=== PATIENT | female | born 1950 | race Asian ===

== ENCOUNTER 2023-06-20 17:54 | Inpatient (IN) | payer MEDICARE, OTHER ==
[~2023-06-20] VITALS: Ht 154.9 cm; Wt 47.2 kg
[2023-06-20] MEDS ORDERED: VANCOMYCIN IV 1,000 MG in IV DEXTROSE 5% 250 ML IV ONE (18:15)
[2023-06-20] MEDS ORDERED: CLINDAMYCIN 600 MG PIGGYBACK**ER OMNI IV ONE (18:31)
[2023-06-20] MEDS ORDERED: VANCOMYCIN IV 200 ML ONE (18:31)
[2023-06-20] MEDS ORDERED: MEROPENEM 1GM/NS 100ML IVPB **ER PYXIS ONLY IV ONE (18:31)
[2023-06-20] MEDS ORDERED: methylPREDNISolone SOD SUCC 125 MG/2 ML VIAL ONE (18:31)
[2023-06-20] MEDS ORDERED: PROPOFOL 100 ML ONE (18:32)
[2023-06-20 18:51] LABS: ABG BASE EXCESS 5.8 mmol/L (-2.0-2.0); ABG PCO2 29.5 mmHg (35.0-48.0); ABG SITE RIGHT FEMORAL; ABG TOTAL HEMOGLOBIN 13.9 G/dL (12.0-16.0); AaDO2 99.8 mmHg; COHb 0.3 % (0.0-3.9); MetHb 0.2 % (0.0-1.5); O2Hb 99.3 % (94.0-97.0); VT, ABG 500 mL
[2023-06-20 18:51] LABS: CALCIUM 10.1 mg/dL (8.5-10.1); CARBON DIOXIDE 34 mmol/L (21-32); CHLORIDE 106 mmol/L (98-107); CREATININE 0.9 mg/dL (0.6-1.3); GLUCOSE 161 mg/dL (74-106); POTASSIUM 3.9 mmol/L (3.5-5.1); SODIUM SERUM 146 mmol/L (136-145); UREA NITROGEN, BLOOD 36 mg/dL (7-18)
[2023-06-20 18:53] LABS: BASOPHILS # (AUTO) 0.1 K/UL (0.0-0.2); BASOPHILS % (AUTO) 0.6 % (0.0-2.0); EOSINOPHILS # (AUTO) 0.2 K/uL (0.0-0.7); EOSINOPHILS % (AUTO) 1.9 % (0.0-7.0); HEMATOCRIT 40.5 % (31.2-41.9); HEMOGLOBIN 13.9 g/dL (10.9-14.3); LYMPHOCYTES # (AUTO) 2.8 K/uL (0.8-4.8); LYMPHOCYTES % (AUTO) 25.2 % (20.5-51.5); MEAN CORPUSCULAR HEMOGLOBIN 33.4 uug (24.7-32.8); MEAN CORPUSCULAR HGB CONC 34 g/dL (32.3-35.6); MEAN CORPUSCULAR VOLUME 97.3 fL (75.5-95.3); MONOCYTES # (AUTO) 0.6 K/uL (0.1-1.30); MONOCYTES % (AUTO) 5.2 % (0.0-11.0); NEUTROPHILS # (AUTO) 7.6 K/uL (1.8-8.9); NEUTROPHILS % (AUTO) 67.1 % (38.5-71.5); PLATELET COUNT (AUTO) 199 K/uL (179-408); RED BLOOD CELL COUNT(AUTO) 4.16 MIL/uL (3.63-4.92); RED CELL DISTRIBUTION WIDTH 12.8 % (12.3-17.7); WHITE BLOOD COUNT (AUTO) 11.3 K/uL (3.8-11.8)
[2023-06-20] MEDS: methylPREDNISolone SOD SUCC 125 MG/2 ML VIAL IV ONE (18:58)
[2023-06-20] MEDS: PROPOFOL 100 ML IV PRN (18:58)
[2023-06-20] MEDS: SUCCINYLCHOLINE CHLORIDE 200 MG/10 ML VIAL IV ONE (18:58)
[2023-06-20] MEDS: ETOMIDATE 20 MG/10 ML VIAL IV ONE (18:58)
[2023-06-20] MEDS: CLINDAMYCIN PHOSPHATE IV 600 MG in IV DEXTROSE 5% 100 ML IV ONE (18:58)
[2023-06-20 18:59] LABS: DIFFERENTIAL COMMENT 1
[2023-06-20] MEDS ORDERED: IPRA0.2S48 NEB (19:00)
[2023-06-20] MEDS ORDERED: ASCO500C6 GT (19:00)
[2023-06-20] MEDS ORDERED: ACET-73 GT (19:00)
[2023-06-20] MEDS ORDERED: ALBU2.5V13 NEB (19:00)
[2023-06-20] MEDS ORDERED: CYAN100T9 GT (19:00)
[2023-06-20] MEDS ORDERED: LACT1CAP26 GT (19:00)
[2023-06-20] MEDS ORDERED: MAGN400O6 GT (19:00)
[2023-06-20] MEDS ORDERED: CHOL500062 GT (19:00)
[2023-06-20] MEDS ORDERED: DOCU50CA13 GT (19:00)
[2023-06-20] MEDS ORDERED: ONDA4TAB5 GT (19:00)
[2023-06-20] MEDS ORDERED: METO25TA6 GT (19:00)
[2023-06-20] MEDS ORDERED: ATOR20TA GT (19:00)
[2023-06-20] MEDS ORDERED: ACET-3117 GT (19:00)
[2023-06-20] MEDS ORDERED: DEXT1DRO3 OP (19:00)
[2023-06-20] MEDS ORDERED: MELA3CAP2 GT (19:00)
[2023-06-20] MEDS ORDERED: ASPI81TA31 GT (19:00)
[2023-06-20] MEDS ORDERED: LIDO1ADH82 TP (19:00)
[2023-06-20] MEDS ORDERED: BACL10TA GT (19:00)
[2023-06-20] MEDS ORDERED: BISA10SU61 RC (19:00)
[2023-06-20] MEDS ORDERED: BUDE0.25 IH (19:01)
[2023-06-20] MEDS ORDERED: PREG50CA GT (19:01)
[2023-06-20] MEDS ORDERED: CALC-494 GT (19:01)
[2023-06-20] MEDS ORDERED: CALC-1276 GT (19:01)
[2023-06-20] MEDS ORDERED: VITA1CAP GT (19:01)
[2023-06-20] MEDS ORDERED: POLY250017 GT (19:01)
[2023-06-20 19:04] LABS: ALANINE AMINOTRANSFERASE 32 U/L (14-59); ALBUMIN 3.8 g/dL (3.4-5.0); ALKALINE PHOSPHATASE 106 U/L (50-136); ASPARTATE AMINOTRANSFERASE 24 U/L (15-37); BILIRUBIN,DIRECT 0.1 mg/dL (0.0-0.2); BILIRUBIN,TOTAL 0.5 mg/dL (0.2-1.0); NT-PRO BNP 349 pg/mL (0-125); TOTAL PROTEIN, SERUM 8.1 g/dL (6.4-8.2)
[2023-06-20 19:06] LABS: LACTIC ACID 3.3 mmol/L (0.4-2.0)
[2023-06-20] MEDS: MEROPENEM 1 G in IV NORMAL SALINE 100 ML IV ONE (19:30)
[2023-06-20] MEDS: IV NORMAL SALINE 1000 ML BAG IV ONE (19:45)
[2023-06-20 20:59] LABS: ABG BASE EXCESS 2.7 mmol/L (-2.0-2.0); ABG HCO3 24.9 mmol/L (22.0-26.0); ABG PCO2 31.3 mmHg (35.0-48.0); ABG PH 7.519 (7.340-7.440); ABG SITE RIGHT RADIAL; ABG TOTAL HEMOGLOBIN 13.2 G/dL (12.0-16.0); AaDO2 99.2 mmHg; COHb 0.4 % (0.0-3.9); MetHb 0.1 % (0.0-1.5); O2Hb 98.7 % (94.0-97.0); VT, ABG 450 mL
[2023-06-20 22:00] VITALS: BP 114/58; O2SAT 100
[2023-06-20 23:00] VITALS: BP 114/57; O2SAT 100
[2023-06-20] MEDS: ATORVASTATIN 20 MG TABLET GT SCH (23:34)
[2023-06-20] MEDS: VANCOMYCIN IV 1,000 MG in IV DEXTROSE 5% 250 ML IV ONE (23:35)
[2023-06-21] VITALS (24 sets, daily range): BP systolic 109–135; BP diastolic 50–94; TEMP 96.8–97.5; O2SAT 99–100
[2023-06-21] MEDS ORDERED: PIPERACILLIN SODIUM/TAZOBACTAM 3.375 G in IV DEXTROSE 5% 50 ML IV ONE
[2023-06-21] MEDS: IV NS 1000 ML 1,000 ML IV SCH (02:48)
[2023-06-21 05:20] LABS: BASOPHILS % (AUTO) 0.1 % (0.0-2.0); HEMATOCRIT 35.3 % (31.2-41.9); HEMOGLOBIN 12.3 g/dL (10.9-14.3); LYMPHOCYTES # (AUTO) 0.9 K/uL (0.8-4.8); LYMPHOCYTES % (AUTO) 7.4 % (20.5-51.5); MEAN CORPUSCULAR HEMOGLOBIN 33.4 uug (24.7-32.8); MEAN CORPUSCULAR HGB CONC 35 g/dL (32.3-35.6); MEAN CORPUSCULAR VOLUME 95.9 fL (75.5-95.3); MONOCYTES # (AUTO) 0.2 K/uL (0.1-1.30); MONOCYTES % (AUTO) 1.2 % (0.0-11.0); NEUTROPHILS # (AUTO) 11.6 K/uL (1.8-8.9); NEUTROPHILS % (AUTO) 91.3 % (38.5-71.5); PLATELET COUNT (AUTO) 164 K/uL (179-408); RED BLOOD CELL COUNT(AUTO) 3.69 MIL/uL (3.63-4.92); RED CELL DISTRIBUTION WIDTH 12.7 % (12.3-17.7); WHITE BLOOD COUNT (AUTO) 12.7 K/uL (3.8-11.8)
[2023-06-21 05:47] LABS: DIFFERENTIAL COMMENT 1
[2023-06-21 05:58] LABS: ALANINE AMINOTRANSFERASE 20 U/L (14-59); ALKALINE PHOSPHATASE 85 U/L (50-136); ASPARTATE AMINOTRANSFERASE 23 U/L (15-37); BILIRUBIN,TOTAL 0.5 mg/dL (0.2-1.0); CALCIUM 9.2 mg/dL (8.5-10.1); CARBON DIOXIDE 27 mmol/L (21-32); CHLORIDE 109 mmol/L (98-107); CHOLESTEROL 121 mg/dL (<200); CREATININE 0.7 mg/dL (0.6-1.3); GLUCOSE 159 mg/dL (74-106); HDL CHOLESTEROL 49 mg/dL (40-60); MAGNESIUM 2.2 mg/dL (1.8-2.4); PHOSPHOROUS 1.8 mg/dL (2.5-4.9); POTASSIUM 3.8 mmol/L (3.5-5.1); SODIUM SERUM 144 mmol/L (136-145); TOTAL PROTEIN, SERUM 6.6 g/dL (6.4-8.2); TRIGLYCERIDES 67 MG/DL (30-150); UREA NITROGEN, BLOOD 30 mg/dL (7-18)
[2023-06-21 06:10] LABS: THYROID STIMULATING HORMONE 0.614 mIU/mL (0.358-3.740)
[2023-06-21] MEDS: PANTOPRAZOLE ORAL SUSPENSION 40 MG SUSPDR.PKT GT SCH (06:18)
[2023-06-21 06:46] LABS: ABG BASE EXCESS 1.4 mmol/L (-2.0-2.0); ABG HCO3 23.9 mmol/L (22.0-26.0); ABG PCO2 31.7 mmHg (35.0-48.0); ABG PH 7.495 (7.340-7.440); ABG PO2 189.6 mmHg (75.0-100.0); ABG SITE RIGHT RADIAL; ABG TOTAL HEMOGLOBIN 13.8 G/dL (12.0-16.0); AaDO2 99.4 mmHg; COHb 0.2 % (0.0-3.9); MetHb 0.1 % (0.0-1.5); O2Hb 99.1 % (94.0-97.0); VT, ABG 450 mL
[2023-06-21] MEDS ORDERED: LEVALBUTEROL HCL NEB 0.63 MG/3 ML NEBU NEB PRN (07:45)
[2023-06-21] MEDS ORDERED: PIPERACILLIN SODIUM/TAZOBACTAM 3.375 G in IV DEXTROSE 5% 50 ML IV SCH (08:00)
[2023-06-21] MEDS: POLYVINYL ALCOHOL OPHT DROPS 15 ML BOTTLE EACHEYE SCH (09:10)
[2023-06-21] MEDS: CULTURELLE CAPSULE GT SCH (09:13)
[2023-06-21] MEDS: ASPIRIN 81 MG TAB.CHEW GT SCH (09:13)
[2023-06-21] MEDS: ASCORBIC ACID 500 MG TABLET GT SCH (09:14)
[2023-06-21] MEDS ORDERED: ALBUTEROL SULFATE 1.25 MG/3 ML NEBU NEB PRN (09:15)
[2023-06-21] MEDS: HEPARIN SODIUM,PORCINE 5,000 UNITS/ML VIAL SQ SCH (09:15)
[2023-06-21] MEDS: DOCUSATE SODIUM 100 MG/10 ML LIQUID UDC GT SCH (09:16)
[2023-06-21] MEDS ORDERED: IOHEXOL 350 100 ML INFUS..BTL ONE (09:29)
[2023-06-21] MEDS ORDERED: IV NORMAL SALINE 250 ML IV ONE (09:29)
[2023-06-21] MEDS ORDERED: SWABABLE VALVE TRANSFER SET EA MC ONE (09:29)
[2023-06-21 11:38] LABS: *BILIRUBIN,URIN NEGATIVE (NEGATIVE); *BLOOD, URINE TRACE (NEGATIVE); *COLOR,URINE YELLOW (YELLOW); *KETONES,URINE NEGATIVE (NEGATIVE); *PROTEIN,URINE NEGATIVE (NEGATIVE); *UROBILINOGEN,URINE 0.2 E.U./dl (NORMAL); LEUKOCYTE ESTERASE ,URINE 1+ (NEGATIVE); NITRITE, URINE POSITIVE (NEGATIVE); UGLUCOSE NEGATIVE (NEGATIVE)
[2023-06-21 11:39] LABS: *CLARITY,URINE SLIGHTLY HAZY (CLEAR)
[2023-06-21] MEDS: PIPERACILLIN SODIUM/TAZOBACTAM 3.375 G in IV DEXTROSE 5% 100 ML IV SCH (11:46)
[2023-06-21 12:01] LABS: SQUAMOUS EPITHELIAL CELL,UR MODERATE /HPF (NONE SEEN); WBC,URINE 20-50 /HPF (0-3)
[2023-06-21 12:02] LABS: BACTERIA,URINE MANY /HPF (NONE SEEN)
[2023-06-21] MEDS: methylPREDNISolone SOD SUCC 40 MG/ML VIAL IV SCH (13:30)
[2023-06-21] MEDS ORDERED: PIPERACILLIN SODIUM/TAZOBACTAM 3.375 G in IV DEXTROSE 5% 100 ML IV SCH (14:00)
[2023-06-21] MEDS: NEUTRA PHOS PACKET PO ONE (16:29)
[2023-06-21] MEDS ORDERED: BACL10TA PO (18:54)
[2023-06-21] MEDS ORDERED: DEXT1DRO3 EACHEYE (18:55)
[2023-06-21] MEDS: VANCOMYCIN IV 1,000 MG in IV DEXTROSE 5% 250 ML IV SCH (22:30)
[2023-06-22] VITALS (29 sets, daily range): BP systolic 113–143; BP diastolic 48–97; TEMP 97.6–98.6; O2SAT 97–100
[2023-06-22 05:01] LABS: BASOPHILS % (AUTO) 0.3 % (0.0-2.0); HEMATOCRIT 37.1 % (31.2-41.9); HEMOGLOBIN 12.8 g/dL (10.9-14.3); LYMPHOCYTES # (AUTO) 1.2 K/uL (0.8-4.8); LYMPHOCYTES % (AUTO) 8.5 % (20.5-51.5); MEAN CORPUSCULAR HEMOGLOBIN 33.3 uug (24.7-32.8); MEAN CORPUSCULAR HGB CONC 35 g/dL (32.3-35.6); MEAN CORPUSCULAR VOLUME 96.5 fL (75.5-95.3); MONOCYTES # (AUTO) 0.2 K/uL (0.1-1.30); MONOCYTES % (AUTO) 1.8 % (0.0-11.0); NEUTROPHILS # (AUTO) 12.1 K/uL (1.8-8.9); NEUTROPHILS % (AUTO) 89.4 % (38.5-71.5); PLATELET COUNT (AUTO) 154 K/uL (179-408); RED BLOOD CELL COUNT(AUTO) 3.84 MIL/uL (3.63-4.92); WHITE BLOOD COUNT (AUTO) 13.6 K/uL (3.8-11.8)
[2023-06-22 05:21] LABS: ALANINE AMINOTRANSFERASE 18 U/L (14-59); ALBUMIN 2.8 g/dL (3.4-5.0); ALKALINE PHOSPHATASE 79 U/L (50-136); ASPARTATE AMINOTRANSFERASE 11 U/L (15-37); BILIRUBIN,TOTAL 0.5 mg/dL (0.2-1.0); CALCIUM 8.8 mg/dL (8.5-10.1); CARBON DIOXIDE 23 mmol/L (21-32); CHLORIDE 112 mmol/L (98-107); CREATININE 0.8 mg/dL (0.6-1.3); GLUCOSE 150 mg/dL (74-106); MAGNESIUM 2.3 mg/dL (1.8-2.4); PHOSPHOROUS 3.7 mg/dL (2.5-4.9); SODIUM SERUM 146 mmol/L (136-145); TOTAL PROTEIN, SERUM 6.6 g/dL (6.4-8.2); UREA NITROGEN, BLOOD 28 mg/dL (7-18)
[2023-06-22 05:36] LABS: DIFFERENTIAL COMMENT 1
[2023-06-22 05:37] LABS: ABG BASE EXCESS -3.4 mmol/L (-2.0-2.0); ABG HCO3 21.1 mmol/L (22.0-26.0); ABG PCO2 36.5 mmHg (35.0-48.0); ABG PO2 100.3 mmHg (75.0-100.0); ABG SITE RIGHT RADIAL; ABG TOTAL HEMOGLOBIN 13.5 G/dL (12.0-16.0); AaDO2 97.5 mmHg; COHb 0.2 % (0.0-3.9); MetHb 0.2 % (0.0-1.5); VT, ABG 450 mL
[2023-06-22] MEDS: IPRATROPIUM BROMIDE 0.5 MG/2.5 ML NEBU NEB SCH (14:17)
[2023-06-22] MEDS: LEVALBUTEROL HCL NEB 0.63 MG/3 ML NEBU NEB SCH (14:17)
[2023-06-22] MEDS: MAGNESIUM HYDROXIDE 30 ML LIQUID UDC GT PRN (23:43)
[2023-06-22] MEDS: BISACODYL 10 MG SUPP.RECT RC PRN (23:43)
[2023-06-23] VITALS (24 sets, daily range): BP systolic 111–160; BP diastolic 50–96; TEMP 97–99; O2SAT 98–100
[2023-06-23] MEDS: IV NORMAL SALINE 250 ML IV PRN (00:42)
[2023-06-23 05:10] LABS: BASOPHILS % (AUTO) 0.1 % (0.0-2.0); HEMOGLOBIN 11.3 g/dL (10.9-14.3); LYMPHOCYTES # (AUTO) 1.2 K/uL (0.8-4.8); LYMPHOCYTES % (AUTO) 10.4 % (20.5-51.5); MEAN CORPUSCULAR HEMOGLOBIN 33.3 uug (24.7-32.8); MEAN CORPUSCULAR HGB CONC 34 g/dL (32.3-35.6); MEAN CORPUSCULAR VOLUME 96.9 fL (75.5-95.3); MONOCYTES # (AUTO) 0.4 K/uL (0.1-1.30); MONOCYTES % (AUTO) 3.7 % (0.0-11.0); NEUTROPHILS % (AUTO) 85.8 % (38.5-71.5); PLATELET COUNT (AUTO) 151 K/uL (179-408); RED BLOOD CELL COUNT(AUTO) 3.41 MIL/uL (3.63-4.92); RED CELL DISTRIBUTION WIDTH 13.2 % (12.3-17.7); WHITE BLOOD COUNT (AUTO) 11.7 K/uL (3.8-11.8)
[2023-06-23 05:20] LABS: DIFFERENTIAL COMMENT 1
[2023-06-23 05:27] LABS: CALCIUM 8.4 mg/dL (8.5-10.1); CARBON DIOXIDE 22 mmol/L (21-32); CHLORIDE 113 mmol/L (98-107); CREATININE 0.8 mg/dL (0.6-1.3); GLUCOSE 131 mg/dL (74-106); MAGNESIUM 2.6 mg/dL (1.8-2.4); PHOSPHOROUS 3.1 mg/dL (2.5-4.9); POTASSIUM 3.8 mmol/L (3.5-5.1); SODIUM SERUM 144 mmol/L (136-145); UREA NITROGEN, BLOOD 33 mg/dL (7-18)
[2023-06-23 05:37] LABS: ABG BASE EXCESS -1.9 mmol/L (-2.0-2.0); ABG PH 7.462 (7.340-7.440); ABG PO2 123.6 mmHg (75.0-100.0); ABG SITE RIGHT RADIAL; ABG TOTAL HEMOGLOBIN 12.6 G/dL (12.0-16.0); AaDO2 98.7 mmHg; COHb 0.2 % (0.0-3.9); MetHb 0.2 % (0.0-1.5); O2Hb 98.2 % (94.0-97.0); VT, ABG 450 mL
[2023-06-23] MEDS: ALBUTEROL SULFATE 1.25 MG/3 ML NEBU NEB SCH (13:38)
[2023-06-24] VITALS (24 sets, daily range): BP systolic 97–169; BP diastolic 58–99; TEMP 97.5–98.4; O2SAT 86–99
[2023-06-24 06:19] LABS: BASOPHILS % (AUTO) 0.1 % (0.0-2.0); HEMATOCRIT 33.6 % (31.2-41.9); HEMOGLOBIN 11.6 g/dL (10.9-14.3); LYMPHOCYTES % (AUTO) 9.6 % (20.5-51.5); MEAN CORPUSCULAR HEMOGLOBIN 33.4 uug (24.7-32.8); MEAN CORPUSCULAR HGB CONC 34 g/dL (32.3-35.6); MONOCYTES # (AUTO) 0.5 K/uL (0.1-1.30); MONOCYTES % (AUTO) 5.3 % (0.0-11.0); NEUTROPHILS # (AUTO) 8.7 K/uL (1.8-8.9); PLATELET COUNT (AUTO) 145 K/uL (179-408); RED BLOOD CELL COUNT(AUTO) 3.46 MIL/uL (3.63-4.92); RED CELL DISTRIBUTION WIDTH 13.2 % (12.3-17.7); WHITE BLOOD COUNT (AUTO) 10.2 K/uL (3.8-11.8)
[2023-06-24 06:29] LABS: CALCIUM 8.3 mg/dL (8.5-10.1); CARBON DIOXIDE 21 mmol/L (21-32); CHLORIDE 112 mmol/L (98-107); CREATININE 0.8 mg/dL (0.6-1.3); GLUCOSE 123 mg/dL (74-106); MAGNESIUM 2.5 mg/dL (1.8-2.4); PHOSPHOROUS 2.9 mg/dL (2.5-4.9); POTASSIUM 3.4 mmol/L (3.5-5.1); SODIUM SERUM 144 mmol/L (136-145); UREA NITROGEN, BLOOD 31 mg/dL (7-18)
[2023-06-24 06:45] LABS: DIFFERENTIAL COMMENT 1
[2023-06-24 06:54] LABS: ABG BASE EXCESS -3.6 mmol/L (-2.0-2.0); ABG HCO3 19.7 mmol/L (22.0-26.0); ABG PCO2 30.7 mmHg (35.0-48.0); ABG PH 7.425 (7.340-7.440); ABG PO2 104.2 mmHg (75.0-100.0); ABG SITE RIGHT RADIAL; COHb 0.3 % (0.0-3.9); MetHb 0.1 % (0.0-1.5); O2Hb 97.4 % (94.0-97.0)
[2023-06-24] MEDS: POTASSIUM CHLORIDE 20 MEQ POWDER PACKET GT ONE (08:25)
[2023-06-24] MEDS: PROPOFOL 100 ML IV PRN (12:39)
[2023-06-24] MEDS ORDERED: ETOMIDATE 20 MG/10 ML VIAL ONE (17:00)
[2023-06-25] VITALS (26 sets, daily range): BP systolic 100–188; BP diastolic 52–90; TEMP 97.3–98; O2SAT 97–100
[2023-06-25] MEDS: MORPHINE SULFATE 2 MG/1 ML DISP.SYRIN IV PRN (01:05)
[2023-06-25 05:10] LABS: BASOPHILS % (AUTO) 0.1 % (0.0-2.0); HEMATOCRIT 36.6 % (31.2-41.9); HEMOGLOBIN 12.7 g/dL (10.9-14.3); LYMPHOCYTES # (AUTO) 1.2 K/uL (0.8-4.8); LYMPHOCYTES % (AUTO) 14.8 % (20.5-51.5); MEAN CORPUSCULAR HEMOGLOBIN 33.2 uug (24.7-32.8); MEAN CORPUSCULAR HGB CONC 35 g/dL (32.3-35.6); MONOCYTES # (AUTO) 0.4 K/uL (0.1-1.30); MONOCYTES % (AUTO) 4.9 % (0.0-11.0); NEUTROPHILS # (AUTO) 6.5 K/uL (1.8-8.9); NEUTROPHILS % (AUTO) 80.2 % (38.5-71.5); PLATELET COUNT (AUTO) 156 K/uL (179-408); RED BLOOD CELL COUNT(AUTO) 3.82 MIL/uL (3.63-4.92); RED CELL DISTRIBUTION WIDTH 12.9 % (12.3-17.7); WHITE BLOOD COUNT (AUTO) 8.2 K/uL (3.8-11.8)
[2023-06-25 05:40] LABS: ABG PCO2 32.5 mmHg (35.0-48.0); ABG PH 7.385 (7.340-7.440); ABG PO2 119.1 mmHg (75.0-100.0); ABG SITE RIGHT RADIAL; ABG TOTAL HEMOGLOBIN 13.9 G/dL (12.0-16.0); AaDO2 98.3 mmHg; COHb 0.3 % (0.0-3.9); MetHb 0.2 % (0.0-1.5); VT, ABG 450 mL
[2023-06-25 05:57] LABS: CALCIUM 8.5 mg/dL (8.5-10.1); CREATININE 0.8 mg/dL (0.6-1.3); MAGNESIUM 2.6 mg/dL (1.8-2.4); PHOSPHOROUS 2.5 mg/dL (2.5-4.9); POTASSIUM 4.1 mmol/L (3.5-5.1)
[2023-06-25 06:01] LABS: DIFFERENTIAL COMMENT 1
[2023-06-25] MEDS: JEVITY 1.2 1000 ML LIQUID GT PRN (10:21)
[2023-06-25] MEDS: PROTEIN SUPPLEMENT (PROSTAT) 30 ML LIQUID GT SCH (17:45)
[2023-06-25] MEDS: methylPREDNISolone SOD SUCC 40 MG/ML VIAL IV SCH (20:13)
[2023-06-26] VITALS (22 sets, daily range): BP systolic 100–161; BP diastolic 53–71; TEMP 97.5–98.4; O2SAT 98–100
[2023-06-26 05:12] LABS: BASOPHILS % (AUTO) 0.1 % (0.0-2.0); HEMATOCRIT 34.6 % (31.2-41.9); HEMOGLOBIN 12.1 g/dL (10.9-14.3); LYMPHOCYTES # (AUTO) 1.1 K/uL (0.8-4.8); LYMPHOCYTES % (AUTO) 10.3 % (20.5-51.5); MEAN CORPUSCULAR HEMOGLOBIN 33.4 uug (24.7-32.8); MEAN CORPUSCULAR HGB CONC 35 g/dL (32.3-35.6); MEAN CORPUSCULAR VOLUME 95.6 fL (75.5-95.3); MONOCYTES # (AUTO) 0.6 K/uL (0.1-1.30); MONOCYTES % (AUTO) 5.7 % (0.0-11.0); NEUTROPHILS # (AUTO) 9.1 K/uL (1.8-8.9); NEUTROPHILS % (AUTO) 83.9 % (38.5-71.5); PLATELET COUNT (AUTO) 165 K/uL (179-408); RED BLOOD CELL COUNT(AUTO) 3.61 MIL/uL (3.63-4.92); WHITE BLOOD COUNT (AUTO) 10.8 K/uL (3.8-11.8)
[2023-06-26 05:32] LABS: DIFFERENTIAL COMMENT 1
[2023-06-26 06:33] LABS: CALCIUM 8.1 mg/dL (8.5-10.1); CREATININE 0.6 mg/dL (0.6-1.3); MAGNESIUM 2.2 mg/dL (1.8-2.4); PHOSPHOROUS 2.1 mg/dL (2.5-4.9)
[2023-06-26] MEDS: MEROPENEM 1 G in IV NORMAL SALINE 100 ML IV SCH (16:11)
[2023-06-26] MEDS: NEUTRA PHOS PACKET GT ONE (16:12)
[2023-06-27] VITALS (23 sets, daily range): BP systolic 90–157; BP diastolic 53–90; TEMP 97–100.2; O2SAT 96–100
[2023-06-27 05:44] LABS: CREATININE 0.6 mg/dL (0.6-1.3); PHOSPHOROUS 2.7 mg/dL (2.5-4.9); POTASSIUM 3.9 mmol/L (3.5-5.1)
[2023-06-27 06:35] LABS: BASOPHILS % (AUTO) 0.1 % (0.0-2.0); HEMATOCRIT 34.1 % (31.2-41.9); HEMOGLOBIN 11.9 g/dL (10.9-14.3); LYMPHOCYTES % (AUTO) 9.7 % (20.5-51.5); MEAN CORPUSCULAR HEMOGLOBIN 33.7 uug (24.7-32.8); MEAN CORPUSCULAR HGB CONC 35 g/dL (32.3-35.6); MEAN CORPUSCULAR VOLUME 96.8 fL (75.5-95.3); MONOCYTES # (AUTO) 0.5 K/uL (0.1-1.30); MONOCYTES % (AUTO) 5.3 % (0.0-11.0); NEUTROPHILS # (AUTO) 8.7 K/uL (1.8-8.9); NEUTROPHILS % (AUTO) 84.9 % (38.5-71.5); PLATELET COUNT (AUTO) 186 K/uL (179-408); RED BLOOD CELL COUNT(AUTO) 3.52 MIL/uL (3.63-4.92); RED CELL DISTRIBUTION WIDTH 12.9 % (12.3-17.7); WHITE BLOOD COUNT (AUTO) 10.3 K/uL (3.8-11.8)
[2023-06-27 10:59] LABS: ABG BASE EXCESS -2.2 mmol/L (-2.0-2.0); ABG HCO3 22.5 mmol/L (22.0-26.0); ABG PCO2 38.3 mmHg (35.0-48.0); ABG PH 7.386 (7.340-7.440); ABG PO2 79.9 mmHg (75.0-100.0); ABG SITE LEFT BRACHIAL; ABG TOTAL HEMOGLOBIN 14.6 G/dL (12.0-16.0); AaDO2 95.7 mmHg; COHb 0.5 % (0.0-3.9); MetHb 0.2 % (0.0-1.5); O2Hb 95.3 % (94.0-97.0)
[2023-06-27 10:59] LABS: ABG BASE EXCESS -2.6 mmol/L (-2.0-2.0); ABG PCO2 28.5 mmHg (35.0-48.0); ABG PH 7.465 (7.340-7.440); ABG PO2 112.2 mmHg (75.0-100.0); ABG SITE LEFT RADIAL; ABG TOTAL HEMOGLOBIN 12.4 G/dL (12.0-16.0); AaDO2 98.4 mmHg; COHb 0.3 % (0.0-3.9); MetHb 0.2 % (0.0-1.5); O2Hb 97.8 % (94.0-97.0); VT, ABG 450 mL
[2023-06-28] VITALS (24 sets, daily range): BP systolic 89–175; BP diastolic 52–104; TEMP 97.4–99.4; O2SAT 95–100
[2023-06-28 05:09] LABS: BASOPHILS % (AUTO) 0.2 % (0.0-2.0); EOSINOPHILS % (AUTO) 0.2 % (0.0-7.0); HEMATOCRIT 34.4 % (31.2-41.9); HEMOGLOBIN 11.8 g/dL (10.9-14.3); LYMPHOCYTES # (AUTO) 1.3 K/uL (0.8-4.8); LYMPHOCYTES % (AUTO) 11.1 % (20.5-51.5); MEAN CORPUSCULAR HEMOGLOBIN 33.5 uug (24.7-32.8); MEAN CORPUSCULAR HGB CONC 34 g/dL (32.3-35.6); MEAN CORPUSCULAR VOLUME 97.3 fL (75.5-95.3); MONOCYTES # (AUTO) 0.5 K/uL (0.1-1.30); MONOCYTES % (AUTO) 4.3 % (0.0-11.0); NEUTROPHILS # (AUTO) 10.2 K/uL (1.8-8.9); NEUTROPHILS % (AUTO) 84.2 % (38.5-71.5); PLATELET COUNT (AUTO) 197 K/uL (179-408); RED BLOOD CELL COUNT(AUTO) 3.53 MIL/uL (3.63-4.92); RED CELL DISTRIBUTION WIDTH 13.3 % (12.3-17.7); WHITE BLOOD COUNT (AUTO) 12.1 K/uL (3.8-11.8)
[2023-06-28 05:18] LABS: CALCIUM 8.1 mg/dL (8.5-10.1); CARBON DIOXIDE 23 mmol/L (21-32); CHLORIDE 112 mmol/L (98-107); CREATININE 0.6 mg/dL (0.6-1.3); GLUCOSE 175 mg/dL (74-106); MAGNESIUM 2.1 mg/dL (1.8-2.4); PHOSPHOROUS 2.5 mg/dL (2.5-4.9); SODIUM SERUM 144 mmol/L (136-145); UREA NITROGEN, BLOOD 29 mg/dL (7-18)
[2023-06-28 05:37] LABS: DIFFERENTIAL COMMENT 1
[2023-06-28 10:35] LABS: ABG HCO3 19.4 mmol/L (22.0-26.0); ABG PCO2 30.2 mmHg (35.0-48.0); ABG PH 7.425 (7.340-7.440); ABG PO2 73.6 mmHg (75.0-100.0); ABG SITE LEFT RADIAL; ABG TOTAL HEMOGLOBIN 12.1 G/dL (12.0-16.0); AaDO2 95.3 mmHg; COHb 0.3 % (0.0-3.9); MetHb 0.2 % (0.0-1.5); O2Hb 94.9 % (94.0-97.0); VT, ABG 450 mL
[2023-06-29] VITALS (24 sets, daily range): BP systolic 83–171; BP diastolic 50–91; TEMP 97.4–99.3; O2SAT 98–100
[2023-06-29 05:05] LABS: BASOPHILS % (AUTO) 0.1 % (0.0-2.0); EOSINOPHILS % (AUTO) 0.1 % (0.0-7.0); HEMATOCRIT 34.4 % (31.2-41.9); HEMOGLOBIN 11.7 g/dL (10.9-14.3); LYMPHOCYTES # (AUTO) 1.5 K/uL (0.8-4.8); LYMPHOCYTES % (AUTO) 11.2 % (20.5-51.5); MEAN CORPUSCULAR HEMOGLOBIN 32.9 uug (24.7-32.8); MEAN CORPUSCULAR HGB CONC 34 g/dL (32.3-35.6); MEAN CORPUSCULAR VOLUME 96.8 fL (75.5-95.3); MONOCYTES # (AUTO) 0.6 K/uL (0.1-1.30); MONOCYTES % (AUTO) 4.7 % (0.0-11.0); NEUTROPHILS # (AUTO) 10.9 K/uL (1.8-8.9); NEUTROPHILS % (AUTO) 83.9 % (38.5-71.5); PLATELET COUNT (AUTO) 212 K/uL (179-408); RED BLOOD CELL COUNT(AUTO) 3.55 MIL/uL (3.63-4.92); RED CELL DISTRIBUTION WIDTH 12.9 % (12.3-17.7)
[2023-06-29 05:35] LABS: ABG BASE EXCESS -0.9 mmol/L (-2.0-2.0); ABG HCO3 23.3 mmol/L (22.0-26.0); ABG PCO2 37.5 mmHg (35.0-48.0); ABG PH 7.412 (7.340-7.440); ABG PO2 69.8 mmHg (75.0-100.0); ABG SITE RIGHT BRACHIAL; ABG TOTAL HEMOGLOBIN 14.4 G/dL (12.0-16.0); AaDO2 94.3 mmHg; COHb 0.4 % (0.0-3.9); MetHb 0.2 % (0.0-1.5); O2Hb 93.8 % (94.0-97.0); VT, ABG 450 mL
[2023-06-29 05:37] LABS: CALCIUM 8.4 mg/dL (8.5-10.1); CARBON DIOXIDE 25 mmol/L (21-32); CHLORIDE 111 mmol/L (98-107); CREATININE 0.6 mg/dL (0.6-1.3); GLUCOSE 169 mg/dL (74-106); MAGNESIUM 2.3 mg/dL (1.8-2.4); PHOSPHOROUS 2.2 mg/dL (2.5-4.9); SODIUM SERUM 143 mmol/L (136-145); UREA NITROGEN, BLOOD 21 mg/dL (7-18)
[2023-06-29 05:44] LABS: DIFFERENTIAL COMMENT 1
[2023-06-29 09:47] LABS: ALBUMIN 2.4 g/dL (3.4-5.0); BILIRUBIN,DIRECT 0.1 mg/dL (0.0-0.2); BILIRUBIN,TOTAL 0.2 mg/dL (0.2-1.0); TOTAL PROTEIN, SERUM 5.9 g/dL (6.4-8.2)
[2023-06-29] MEDS: NEUTRA PHOS PACKET GT ONE (16:35)
[2023-06-30] VITALS (24 sets, daily range): BP systolic 69–152; BP diastolic 36–104; TEMP 97.7–98.4; O2SAT 99–100
[2023-06-30 05:05] LABS: BASOPHILS % (AUTO) 0.3 % (0.0-2.0); EOSINOPHILS % (AUTO) 0.1 % (0.0-7.0); HEMATOCRIT 31.3 % (31.2-41.9); HEMOGLOBIN 10.8 g/dL (10.9-14.3); LYMPHOCYTES # (AUTO) 1.4 K/uL (0.8-4.8); LYMPHOCYTES % (AUTO) 11.8 % (20.5-51.5); MEAN CORPUSCULAR HEMOGLOBIN 33.3 uug (24.7-32.8); MEAN CORPUSCULAR HGB CONC 34 g/dL (32.3-35.6); MONOCYTES # (AUTO) 0.6 K/uL (0.1-1.30); MONOCYTES % (AUTO) 5.1 % (0.0-11.0); NEUTROPHILS # (AUTO) 9.9 K/uL (1.8-8.9); NEUTROPHILS % (AUTO) 82.7 % (38.5-71.5); PLATELET COUNT (AUTO) 213 K/uL (179-408); RED BLOOD CELL COUNT(AUTO) 3.23 MIL/uL (3.63-4.92); RED CELL DISTRIBUTION WIDTH 13.2 % (12.3-17.7)
[2023-06-30 05:31] LABS: CALCIUM 8.1 mg/dL (8.5-10.1); CARBON DIOXIDE 25 mmol/L (21-32); CHLORIDE 112 mmol/L (98-107); CREATININE 0.6 mg/dL (0.6-1.3); GLUCOSE 146 mg/dL (74-106); MAGNESIUM 2.3 mg/dL (1.8-2.4); PHOSPHOROUS 2.8 mg/dL (2.5-4.9); POTASSIUM 3.9 mmol/L (3.5-5.1); SODIUM SERUM 144 mmol/L (136-145); UREA NITROGEN, BLOOD 20 mg/dL (7-18)
[2023-06-30 05:37] LABS: DIFFERENTIAL COMMENT 1
[2023-06-30 05:59] LABS: ABG BASE EXCESS -1.2 mmol/L (-2.0-2.0); ABG PCO2 32.3 mmHg (35.0-48.0); ABG PH 7.451 (7.340-7.440); ABG PO2 110.6 mmHg (75.0-100.0); ABG SITE RIGHT RADIAL; ABG TOTAL HEMOGLOBIN 12.4 G/dL (12.0-16.0); AaDO2 98.3 mmHg; COHb 0.1 % (0.0-3.9); MetHb 0.2 % (0.0-1.5); O2Hb 97.9 % (94.0-97.0); VT, ABG 450 mL
[2023-07-01] VITALS (26 sets, daily range): BP systolic 76–150; BP diastolic 48–96; TEMP 96.5–98.8; O2SAT 97–100
[2023-07-01 05:16] LABS: ABG BASE EXCESS 1.3 mmol/L (-2.0-2.0); ABG HCO3 23.8 mmol/L (22.0-26.0); ABG PCO2 30.9 mmHg (35.0-48.0); ABG PH 7.504 (7.340-7.440); ABG PO2 107.5 mmHg (75.0-100.0); ABG SITE RIGHT RADIAL; ABG TOTAL HEMOGLOBIN 12.5 G/dL (12.0-16.0); AaDO2 98.4 mmHg; COHb 0.2 % (0.0-3.9); MetHb 0.2 % (0.0-1.5); O2Hb 97.9 % (94.0-97.0); VT, ABG 450 mL
[2023-07-01 05:22] LABS: BASOPHILS % (AUTO) 0.1 % (0.0-2.0); EOSINOPHILS % (AUTO) 0.1 % (0.0-7.0); HEMATOCRIT 33.6 % (31.2-41.9); HEMOGLOBIN 11.5 g/dL (10.9-14.3); LYMPHOCYTES # (AUTO) 1.2 K/uL (0.8-4.8); LYMPHOCYTES % (AUTO) 9.9 % (20.5-51.5); MEAN CORPUSCULAR HEMOGLOBIN 33.2 uug (24.7-32.8); MEAN CORPUSCULAR HGB CONC 34 g/dL (32.3-35.6); MEAN CORPUSCULAR VOLUME 96.9 fL (75.5-95.3); MONOCYTES # (AUTO) 0.6 K/uL (0.1-1.30); MONOCYTES % (AUTO) 5.2 % (0.0-11.0); NEUTROPHILS # (AUTO) 10.3 K/uL (1.8-8.9); NEUTROPHILS % (AUTO) 84.7 % (38.5-71.5); PLATELET COUNT (AUTO) 232 K/uL (179-408); RED BLOOD CELL COUNT(AUTO) 3.47 MIL/uL (3.63-4.92); RED CELL DISTRIBUTION WIDTH 13.3 % (12.3-17.7); WHITE BLOOD COUNT (AUTO) 12.2 K/uL (3.8-11.8)
[2023-07-01 05:33] LABS: DIFFERENTIAL COMMENT 1
[2023-07-01 05:45] LABS: CALCIUM 8.5 mg/dL (8.5-10.1); CARBON DIOXIDE 26 mmol/L (21-32); CHLORIDE 110 mmol/L (98-107); CREATININE 0.7 mg/dL (0.6-1.3); GLUCOSE 135 mg/dL (74-106); MAGNESIUM 2.5 mg/dL (1.8-2.4); PHOSPHOROUS 2.6 mg/dL (2.5-4.9); SODIUM SERUM 144 mmol/L (136-145); TRIGLYCERIDES 102 MG/DL (30-150); UREA NITROGEN, BLOOD 26 mg/dL (7-18)
[2023-07-02] VITALS (25 sets, daily range): BP systolic 76–130; BP diastolic 43–106; TEMP 97.8–99; O2SAT 97–100
[2023-07-02 05:14] LABS: BASOPHILS % (AUTO) 0.4 % (0.0-2.0); EOSINOPHILS % (AUTO) 0.1 % (0.0-7.0); HEMATOCRIT 36.7 % (31.2-41.9); HEMOGLOBIN 12.3 g/dL (10.9-14.3); LYMPHOCYTES # (AUTO) 2.2 K/uL (0.8-4.8); LYMPHOCYTES % (AUTO) 16.5 % (20.5-51.5); MEAN CORPUSCULAR HEMOGLOBIN 32.7 uug (24.7-32.8); MEAN CORPUSCULAR HGB CONC 33 g/dL (32.3-35.6); MONOCYTES # (AUTO) 0.8 K/uL (0.1-1.30); MONOCYTES % (AUTO) 6.5 % (0.0-11.0); NEUTROPHILS % (AUTO) 76.5 % (38.5-71.5); PLATELET COUNT (AUTO) 282 K/uL (179-408); RED BLOOD CELL COUNT(AUTO) 3.74 MIL/uL (3.63-4.92); RED CELL DISTRIBUTION WIDTH 13.5 % (12.3-17.7); WHITE BLOOD COUNT (AUTO) 13.1 K/uL (3.8-11.8)
[2023-07-02 05:34] LABS: DIFFERENTIAL COMMENT 1
[2023-07-02 05:43] LABS: CALCIUM 9.3 mg/dL (8.5-10.1); CARBON DIOXIDE 29 mmol/L (21-32); CHLORIDE 110 mmol/L (98-107); CREATININE 0.7 mg/dL (0.6-1.3); GLUCOSE 132 mg/dL (74-106); MAGNESIUM 2.5 mg/dL (1.8-2.4); PHOSPHOROUS 2.5 mg/dL (2.5-4.9); POTASSIUM 4.2 mmol/L (3.5-5.1); SODIUM SERUM 145 mmol/L (136-145); UREA NITROGEN, BLOOD 34 mg/dL (7-18)
[2023-07-02] MEDS: methylPREDNISolone SOD SUCC 40 MG/ML VIAL IV SCH (08:47)
[2023-07-02 14:19] LABS: *BILIRUBIN,URIN NEGATIVE (NEGATIVE); *CLARITY,URINE SLIGHTLY CLOUDY (CLEAR); *COLOR,URINE LIGHT YELLOW (YELLOW); *KETONES,URINE NEGATIVE (NEGATIVE); *PROTEIN,URINE 1+ (NEGATIVE); *UROBILINOGEN,URINE 0.2 E.U./dl (NORMAL); LEUKOCYTE ESTERASE ,URINE TRACE (NEGATIVE); NITRITE, URINE NEGATIVE (NEGATIVE); PH,URINE 6.5 (5.0-8.0); UGLUCOSE NEGATIVE (NEGATIVE)
[2023-07-02 14:23] LABS: *BLOOD, URINE TRACE (NEGATIVE)
[2023-07-02 14:50] LABS: BACTERIA,URINE FEW /HPF (NONE SEEN); SQUAMOUS EPITHELIAL CELL,UR FEW /HPF (NONE SEEN); YEAST,URINE MANY /HPF (NONE SEEN)
[2023-07-03] VITALS (30 sets, daily range): BP systolic 72–141; BP diastolic 46–99; TEMP 97.5–98.3; O2SAT 96–100
[2023-07-03 05:43] LABS: BASOPHILS % (AUTO) 0.3 % (0.0-2.0); HEMATOCRIT 36.8 % (31.2-41.9); HEMOGLOBIN 12.6 g/dL (10.9-14.3); LYMPHOCYTES # (AUTO) 1.3 K/uL (0.8-4.8); MEAN CORPUSCULAR HEMOGLOBIN 33.1 uug (24.7-32.8); MEAN CORPUSCULAR HGB CONC 34 g/dL (32.3-35.6); MEAN CORPUSCULAR VOLUME 96.8 fL (75.5-95.3); MONOCYTES # (AUTO) 0.6 K/uL (0.1-1.30); MONOCYTES % (AUTO) 4.5 % (0.0-11.0); NEUTROPHILS # (AUTO) 12.1 K/uL (1.8-8.9); NEUTROPHILS % (AUTO) 86.2 % (38.5-71.5); PLATELET COUNT (AUTO) 268 K/uL (179-408); RED CELL DISTRIBUTION WIDTH 13.7 % (12.3-17.7)
[2023-07-03 05:45] LABS: DIFFERENTIAL COMMENT 1
[2023-07-03 06:14] LABS: ALBUMIN 2.6 g/dL (3.4-5.0); BILIRUBIN,TOTAL 0.3 mg/dL (0.2-1.0); CALCIUM 9.3 mg/dL (8.5-10.1); CREATININE 0.6 mg/dL (0.6-1.3); MAGNESIUM 2.6 mg/dL (1.8-2.4); PHOSPHOROUS 2.9 mg/dL (2.5-4.9); TOTAL PROTEIN, SERUM 6.7 g/dL (6.4-8.2)
[2023-07-03 06:20] LABS: ABG BASE EXCESS -0.3 mmol/L (-2.0-2.0); ABG HCO3 23.3 mmol/L (22.0-26.0); ABG PCO2 34.6 mmHg (35.0-48.0); ABG PH 7.446 (7.340-7.440); ABG PO2 98.4 mmHg (75.0-100.0); ABG SITE RIGHT RADIAL; ABG TOTAL HEMOGLOBIN 12.8 G/dL (12.0-16.0); AaDO2 97.7 mmHg; COHb 0.2 % (0.0-3.9); MetHb 0.1 % (0.0-1.5); O2Hb 97.6 % (94.0-97.0); VT, ABG 450 mL
[2023-07-03 06:26] LABS: ABG BASE EXCESS 2.1 mmol/L (-2.0-2.0); ABG HCO3 25.2 mmol/L (22.0-26.0); ABG PCO2 34.9 mmHg (35.0-48.0); ABG PH 7.477 (7.340-7.440); ABG PO2 105.5 mmHg (75.0-100.0); ABG TOTAL HEMOGLOBIN 15.2 G/dL (12.0-16.0); AaDO2 98.2 mmHg; COHb 0.6 % (0.0-3.9); MetHb 0.3 % (0.0-1.5); O2Hb 97.6 % (94.0-97.0); VT, ABG 450 mL
[2023-07-04] VITALS (24 sets, daily range): BP systolic 88–130; BP diastolic 49–101; TEMP 97.5–98.9; O2SAT 99–100
[2023-07-04 05:18] LABS: BASOPHILS % (AUTO) 0.2 % (0.0-2.0); EOSINOPHILS % (AUTO) 0.2 % (0.0-7.0); HEMATOCRIT 32.7 % (31.2-41.9); HEMOGLOBIN 11.2 g/dL (10.9-14.3); LYMPHOCYTES # (AUTO) 1.4 K/uL (0.8-4.8); LYMPHOCYTES % (AUTO) 11.1 % (20.5-51.5); MEAN CORPUSCULAR HEMOGLOBIN 33.2 uug (24.7-32.8); MEAN CORPUSCULAR HGB CONC 34 g/dL (32.3-35.6); MONOCYTES # (AUTO) 0.5 K/uL (0.1-1.30); MONOCYTES % (AUTO) 4.1 % (0.0-11.0); NEUTROPHILS % (AUTO) 84.4 % (38.5-71.5); PLATELET COUNT (AUTO) 263 K/uL (179-408); RED BLOOD CELL COUNT(AUTO) 3.37 MIL/uL (3.63-4.92); RED CELL DISTRIBUTION WIDTH 13.6 % (12.3-17.7); WHITE BLOOD COUNT (AUTO) 13.1 K/uL (3.8-11.8)
[2023-07-04 05:32] LABS: CALCIUM 9.1 mg/dL (8.5-10.1); CREATININE 0.7 mg/dL (0.6-1.3); MAGNESIUM 2.7 mg/dL (1.8-2.4); PHOSPHOROUS 2.4 mg/dL (2.5-4.9); POTASSIUM 4.2 mmol/L (3.5-5.1)
[2023-07-04 06:24] LABS: ABG BASE EXCESS -0.6 mmol/L (-2.0-2.0); ABG HCO3 23.1 mmol/L (22.0-26.0); ABG PCO2 35.2 mmHg (35.0-48.0); ABG PH 7.435 (7.340-7.440); ABG PO2 115.6 mmHg (75.0-100.0); ABG SITE RIGHT RADIAL; ABG TOTAL HEMOGLOBIN 13.3 G/dL (12.0-16.0); AaDO2 98.4 mmHg; COHb 0.1 % (0.0-3.9); MetHb 0.3 % (0.0-1.5); O2Hb 98.1 % (94.0-97.0); VT, ABG 450 mL
[2023-07-04 06:29] LABS: DIFFERENTIAL COMMENT 1
[2023-07-04] MEDS: NEUTRA PHOS PACKET GT ONE (17:19)
[2023-07-05] VITALS (49 sets, daily range): BP systolic 73–162; BP diastolic 48–94; TEMP 97.8–99.2; O2SAT 98–100
[2023-07-05 05:11] LABS: BASOPHILS # (AUTO) 0.1 K/UL (0.0-0.2); BASOPHILS % (AUTO) 0.5 % (0.0-2.0); EOSINOPHILS % (AUTO) 0.3 % (0.0-7.0); HEMATOCRIT 33.4 % (31.2-41.9); HEMOGLOBIN 11.5 g/dL (10.9-14.3); LYMPHOCYTES # (AUTO) 1.5 K/uL (0.8-4.8); LYMPHOCYTES % (AUTO) 12.5 % (20.5-51.5); MEAN CORPUSCULAR HEMOGLOBIN 33.6 uug (24.7-32.8); MEAN CORPUSCULAR HGB CONC 34 g/dL (32.3-35.6); MEAN CORPUSCULAR VOLUME 97.5 fL (75.5-95.3); MONOCYTES # (AUTO) 0.5 K/uL (0.1-1.30); NEUTROPHILS # (AUTO) 10.1 K/uL (1.8-8.9); NEUTROPHILS % (AUTO) 82.7 % (38.5-71.5); PLATELET COUNT (AUTO) 279 K/uL (179-408); RED BLOOD CELL COUNT(AUTO) 3.42 MIL/uL (3.63-4.92); RED CELL DISTRIBUTION WIDTH 13.4 % (12.3-17.7); WHITE BLOOD COUNT (AUTO) 12.2 K/uL (3.8-11.8)
[2023-07-05 05:26] LABS: DIFFERENTIAL COMMENT 1
[2023-07-05 05:38] LABS: CALCIUM 9.2 mg/dL (8.5-10.1); CARBON DIOXIDE 26 mmol/L (21-32); CHLORIDE 110 mmol/L (98-107); CREATININE 0.6 mg/dL (0.6-1.3); GLUCOSE 131 mg/dL (74-106); MAGNESIUM 2.5 mg/dL (1.8-2.4); POTASSIUM 4.4 mmol/L (3.5-5.1); SODIUM SERUM 145 mmol/L (136-145); UREA NITROGEN, BLOOD 38 mg/dL (7-18)
[2023-07-05 05:51] LABS: ABG BASE EXCESS 0.7 mmol/L (-2.0-2.0); ABG HCO3 23.4 mmol/L (22.0-26.0); ABG PCO2 31.5 mmHg (35.0-48.0); ABG PH 7.488 (7.340-7.440); ABG PO2 125.8 mmHg (75.0-100.0); ABG SITE LEFT RADIAL; ABG TOTAL HEMOGLOBIN 12.7 G/dL (12.0-16.0); AaDO2 98.8 mmHg; COHb 0.4 % (0.0-3.9); MetHb 0.2 % (0.0-1.5); O2Hb 98.2 % (94.0-97.0); VT, ABG 450 mL
[2023-07-06] VITALS (51 sets, daily range): BP systolic 74–177; BP diastolic 36–97; TEMP 97.1–98.2; O2SAT 98–100
[2023-07-06 05:10] LABS: BASOPHILS % (AUTO) 0.3 % (0.0-2.0); HEMATOCRIT 33.4 % (31.2-41.9); HEMOGLOBIN 11.5 g/dL (10.9-14.3); LYMPHOCYTES % (AUTO) 12.4 % (20.5-51.5); MEAN CORPUSCULAR HEMOGLOBIN 33.3 uug (24.7-32.8); MEAN CORPUSCULAR HGB CONC 35 g/dL (32.3-35.6); MEAN CORPUSCULAR VOLUME 96.3 fL (75.5-95.3); MONOCYTES # (AUTO) 0.4 K/uL (0.1-1.30); MONOCYTES % (AUTO) 4.4 % (0.0-11.0); NEUTROPHILS # (AUTO) 6.7 K/uL (1.8-8.9); NEUTROPHILS % (AUTO) 82.9 % (38.5-71.5); PLATELET COUNT (AUTO) 257 K/uL (179-408); RED BLOOD CELL COUNT(AUTO) 3.47 MIL/uL (3.63-4.92); RED CELL DISTRIBUTION WIDTH 13.7 % (12.3-17.7); WHITE BLOOD COUNT (AUTO) 8.1 K/uL (3.8-11.8)
[2023-07-06 05:24] LABS: DIFFERENTIAL COMMENT 1
[2023-07-06 05:32] LABS: CALCIUM 9.3 mg/dL (8.5-10.1); CARBON DIOXIDE 27 mmol/L (21-32); CHLORIDE 110 mmol/L (98-107); CREATININE 0.6 mg/dL (0.6-1.3); GLUCOSE 142 mg/dL (74-106); MAGNESIUM 2.4 mg/dL (1.8-2.4); PHOSPHOROUS 3.3 mg/dL (2.5-4.9); SODIUM SERUM 144 mmol/L (136-145); UREA NITROGEN, BLOOD 39 mg/dL (7-18)
[2023-07-06] MEDS: methylPREDNISolone SOD SUCC 40 MG/ML VIAL IV SCH (08:35)
[2023-07-06] MEDS ORDERED: REMEDY ESSENTIAL ZINC PASTE 113 GM TOP PRN (11:45)
[2023-07-06] MEDS: NOREPINEPHRINE BITARTRATE 8 MG in IV NORMAL SALINE 242 ML IV PRN (12:39)
[2023-07-06] MEDS: REMEDY ESSENTIAL ZINC PASTE 113 GM TOP SCH (21:01)
[2023-07-07] VITALS (83 sets, daily range): BP systolic 71–199; BP diastolic 46–138; TEMP 97–98.8; O2SAT 96–100
[2023-07-07 06:00] LABS: BASOPHILS # (AUTO) 0.1 K/UL (0.0-0.2); BASOPHILS % (AUTO) 0.7 % (0.0-2.0); EOSINOPHILS # (AUTO) 0.1 K/uL (0.0-0.7); EOSINOPHILS % (AUTO) 0.6 % (0.0-7.0); HEMATOCRIT 38.5 % (31.2-41.9); LYMPHOCYTES # (AUTO) 3.2 K/uL (0.8-4.8); LYMPHOCYTES % (AUTO) 17.6 % (20.5-51.5); MEAN CORPUSCULAR HGB CONC 34 g/dL (32.3-35.6); MEAN CORPUSCULAR VOLUME 97.5 fL (75.5-95.3); MONOCYTES % (AUTO) 5.8 % (0.0-11.0); NEUTROPHILS # (AUTO) 13.7 K/uL (1.8-8.9); NEUTROPHILS % (AUTO) 75.3 % (38.5-71.5); PLATELET COUNT (AUTO) 285 K/uL (179-408); RED BLOOD CELL COUNT(AUTO) 3.95 MIL/uL (3.63-4.92); WHITE BLOOD COUNT (AUTO) 18.1 K/uL (3.8-11.8)
[2023-07-07 06:14] LABS: DIFFERENTIAL COMMENT 1
[2023-07-07 06:25] LABS: CARBON DIOXIDE 27 mmol/L (21-32); CHLORIDE 107 mmol/L (98-107); CREATININE 0.8 mg/dL (0.6-1.3); GLUCOSE 150 mg/dL (74-106); MAGNESIUM 2.2 mg/dL (1.8-2.4); PHOSPHOROUS 2.6 mg/dL (2.5-4.9); POTASSIUM 3.6 mmol/L (3.5-5.1); SODIUM SERUM 140 mmol/L (136-145); TRIGLYCERIDES 230 MG/DL (30-150); UREA NITROGEN, BLOOD 43 mg/dL (7-18)
[2023-07-07 06:33] LABS: CALCIUM 9.2 mg/dL (8.5-10.1)
[2023-07-07 09:32] LABS: ABG BASE EXCESS -2.4 mmol/L (-2.0-2.0); ABG HCO3 20.1 mmol/L (22.0-26.0); ABG PCO2 28.6 mmHg (35.0-48.0); ABG PH 7.465 (7.340-7.440); ABG PO2 91.3 mmHg (75.0-100.0); ABG SITE LEFT RADIAL; ABG TOTAL HEMOGLOBIN 13.7 G/dL (12.0-16.0); AaDO2 97.5 mmHg; COHb 0.6 % (0.0-3.9); MetHb 0.3 % (0.0-1.5); O2Hb 96.6 % (94.0-97.0); VT, ABG 450 mL
[2023-07-07] MEDS: FLUCONAZOLE 200 MG TABLET PO SCH (17:23)
[2023-07-07] MEDS: MIDAZOLAM HCL 50 MG in IV NORMAL SALINE 40 ML IV PRN (20:39)
[2023-07-08] VITALS (97 sets, daily range): BP systolic 86–141; BP diastolic 51–73; TEMP 97.3–98.8; O2SAT 98–100
[2023-07-08 05:17] LABS: BASOPHILS # (AUTO) 0.1 K/UL (0.0-0.2); EOSINOPHILS # (AUTO) 0.1 K/uL (0.0-0.7); EOSINOPHILS % (AUTO) 0.7 % (0.0-7.0); HEMATOCRIT 37.3 % (31.2-41.9); HEMOGLOBIN 12.7 g/dL (10.9-14.3); LYMPHOCYTES # (AUTO) 2.4 K/uL (0.8-4.8); LYMPHOCYTES % (AUTO) 19.1 % (20.5-51.5); MEAN CORPUSCULAR HEMOGLOBIN 32.9 uug (24.7-32.8); MEAN CORPUSCULAR HGB CONC 34 g/dL (32.3-35.6); MEAN CORPUSCULAR VOLUME 96.6 fL (75.5-95.3); MONOCYTES # (AUTO) 0.6 K/uL (0.1-1.30); NEUTROPHILS # (AUTO) 9.3 K/uL (1.8-8.9); NEUTROPHILS % (AUTO) 74.2 % (38.5-71.5); PLATELET COUNT (AUTO) 259 K/uL (179-408); RED BLOOD CELL COUNT(AUTO) 3.86 MIL/uL (3.63-4.92); RED CELL DISTRIBUTION WIDTH 13.8 % (12.3-17.7); WHITE BLOOD COUNT (AUTO) 12.6 K/uL (3.8-11.8)
[2023-07-08 05:31] LABS: CARBON DIOXIDE 28 mmol/L (21-32); CHLORIDE 109 mmol/L (98-107); CREATININE 0.6 mg/dL (0.6-1.3); GLUCOSE 147 mg/dL (74-106); MAGNESIUM 2.3 mg/dL (1.8-2.4); PHOSPHOROUS 2.3 mg/dL (2.5-4.9); POTASSIUM 4.1 mmol/L (3.5-5.1); SODIUM SERUM 144 mmol/L (136-145); UREA NITROGEN, BLOOD 36 mg/dL (7-18)
[2023-07-08 05:37] LABS: CALCIUM 9.2 mg/dL (8.5-10.1)
[2023-07-08 05:39] LABS: DIFFERENTIAL COMMENT 1
[2023-07-08] MEDS: NEUTRA PHOS PACKET GT ONE (16:43)
[2023-07-09] VITALS (66 sets, daily range): BP systolic 82–168; BP diastolic 51–92; TEMP 98.7–100.4; O2SAT 93–98
[2023-07-09 05:28] LABS: BASOPHILS % (AUTO) 0.2 % (0.0-2.0); HEMATOCRIT 38.2 % (31.2-41.9); HEMOGLOBIN 13.1 g/dL (10.9-14.3); LYMPHOCYTES # (AUTO) 1.9 K/uL (0.8-4.8); LYMPHOCYTES % (AUTO) 17.5 % (20.5-51.5); MEAN CORPUSCULAR HEMOGLOBIN 33.2 uug (24.7-32.8); MEAN CORPUSCULAR HGB CONC 34 g/dL (32.3-35.6); MEAN CORPUSCULAR VOLUME 96.3 fL (75.5-95.3); MONOCYTES # (AUTO) 0.8 K/uL (0.1-1.30); MONOCYTES % (AUTO) 7.4 % (0.0-11.0); NEUTROPHILS # (AUTO) 8.2 K/uL (1.8-8.9); NEUTROPHILS % (AUTO) 74.9 % (38.5-71.5); PLATELET COUNT (AUTO) 291 K/uL (179-408); RED BLOOD CELL COUNT(AUTO) 3.97 MIL/uL (3.63-4.92); RED CELL DISTRIBUTION WIDTH 13.7 % (12.3-17.7); WHITE BLOOD COUNT (AUTO) 10.9 K/uL (3.8-11.8)
[2023-07-09 06:04] LABS: ABG BASE EXCESS 2.7 mmol/L (-2.0-2.0); ABG PCO2 35.4 mmHg (35.0-48.0); ABG PH 7.483 (7.340-7.440); ABG PO2 104.1 mmHg (75.0-100.0); ABG SITE RIGHT RADIAL; AaDO2 98.1 mmHg; COHb 0.3 % (0.0-3.9); MetHb 0.2 % (0.0-1.5); O2Hb 97.8 % (94.0-97.0); VT, ABG 450 mL
[2023-07-09 06:23] LABS: CALCIUM 9.3 mg/dL (8.5-10.1); CARBON DIOXIDE 29 mmol/L (21-32); CHLORIDE 112 mmol/L (98-107); CREATININE 0.7 mg/dL (0.6-1.3); GLUCOSE 137 mg/dL (74-106); MAGNESIUM 2.5 mg/dL (1.8-2.4); PHOSPHOROUS 2.4 mg/dL (2.5-4.9); POTASSIUM 4.5 mmol/L (3.5-5.1); SODIUM SERUM 148 mmol/L (136-145); UREA NITROGEN, BLOOD 43 mg/dL (7-18)
[2023-07-09 06:25] LABS: DIFFERENTIAL COMMENT 1
[2023-07-09] MEDS ORDERED: NEUTRA PHOS PACKET PO ONE (16:30)
[2023-07-09] MEDS: NEUTRA PHOS PACKET GT ONE (16:56)
[2023-07-10] VITALS (99 sets, daily range): BP systolic 78–162; BP diastolic 50–118; TEMP 97.5–100.1; O2SAT 95–100
[2023-07-10 05:24] LABS: BASOPHILS % (AUTO) 0.2 % (0.0-2.0); HEMATOCRIT 36.6 % (31.2-41.9); HEMOGLOBIN 12.5 g/dL (10.9-14.3); LYMPHOCYTES # (AUTO) 1.7 K/uL (0.8-4.8); LYMPHOCYTES % (AUTO) 17.9 % (20.5-51.5); MEAN CORPUSCULAR HEMOGLOBIN 32.6 uug (24.7-32.8); MEAN CORPUSCULAR HGB CONC 34 g/dL (32.3-35.6); MEAN CORPUSCULAR VOLUME 95.9 fL (75.5-95.3); MONOCYTES # (AUTO) 0.7 K/uL (0.1-1.30); MONOCYTES % (AUTO) 7.7 % (0.0-11.0); NEUTROPHILS # (AUTO) 6.9 K/uL (1.8-8.9); NEUTROPHILS % (AUTO) 74.2 % (38.5-71.5); PLATELET COUNT (AUTO) 242 K/uL (179-408); RED BLOOD CELL COUNT(AUTO) 3.82 MIL/uL (3.63-4.92); RED CELL DISTRIBUTION WIDTH 13.6 % (12.3-17.7); WHITE BLOOD COUNT (AUTO) 9.3 K/uL (3.8-11.8)
[2023-07-10 05:29] LABS: DIFFERENTIAL COMMENT 1
[2023-07-10 05:46] LABS: ALBUMIN 2.6 g/dL (3.4-5.0); BILIRUBIN,TOTAL 0.7 mg/dL (0.2-1.0); CREATININE 0.6 mg/dL (0.6-1.3); MAGNESIUM 2.4 mg/dL (1.8-2.4); PHOSPHOROUS 2.9 mg/dL (2.5-4.9); POTASSIUM 4.1 mmol/L (3.5-5.1); TOTAL PROTEIN, SERUM 6.6 g/dL (6.4-8.2)
[2023-07-10 08:47] LABS: ABG BASE EXCESS 1.4 mmol/L (-2.0-2.0); ABG HCO3 22.1 mmol/L (22.0-26.0); ABG PH 7.565 (7.340-7.440); ABG PO2 145.1 mmHg (75.0-100.0); ABG SITE RIGHT RADIAL; AaDO2 99.2 mmHg; COHb 0.5 % (0.0-3.9); MetHb 0.2 % (0.0-1.5); O2Hb 98.5 % (94.0-97.0); VT, ABG 450 mL
[2023-07-10] MEDS ORDERED: LIDOCAINE HCL 1% 20 ML VIAL ONE (12:48)
[2023-07-10] MEDS ORDERED: BUPIVACAINE PF 0.5% 30 ML VIAL ONE (12:49)
[2023-07-10] MEDS ORDERED: ACETAMINOPHEN 650 MG SUPP.RECT RC PRN (13:00)
[2023-07-10] MEDS: ACETAMINOPHEN 650 MG/20.3 ML LIQUID UDC GT PRN (18:10)
[2023-07-11] VITALS (50 sets, daily range): BP systolic 92–151; BP diastolic 54–88; TEMP 97.3–98; O2SAT 98–100
[2023-07-11 05:06] LABS: BASOPHILS % (AUTO) 0.4 % (0.0-2.0); HEMOGLOBIN 12.7 g/dL (10.9-14.3); LYMPHOCYTES # (AUTO) 1.3 K/uL (0.8-4.8); LYMPHOCYTES % (AUTO) 13.8 % (20.5-51.5); MEAN CORPUSCULAR HEMOGLOBIN 33.4 uug (24.7-32.8); MEAN CORPUSCULAR HGB CONC 34 g/dL (32.3-35.6); MEAN CORPUSCULAR VOLUME 97.1 fL (75.5-95.3); MONOCYTES # (AUTO) 0.6 K/uL (0.1-1.30); MONOCYTES % (AUTO) 5.9 % (0.0-11.0); NEUTROPHILS # (AUTO) 7.7 K/uL (1.8-8.9); NEUTROPHILS % (AUTO) 79.9 % (38.5-71.5); PLATELET COUNT (AUTO) 234 K/uL (179-408); RED BLOOD CELL COUNT(AUTO) 3.81 MIL/uL (3.63-4.92); RED CELL DISTRIBUTION WIDTH 13.9 % (12.3-17.7); WHITE BLOOD COUNT (AUTO) 9.6 K/uL (3.8-11.8)
[2023-07-11 05:18] LABS: DIFFERENTIAL COMMENT 1
[2023-07-11 05:29] LABS: ABG BASE EXCESS -0.7 mmol/L (-2.0-2.0); ABG HCO3 22.7 mmol/L (22.0-26.0); ABG PCO2 33.5 mmHg (35.0-48.0); ABG PH 7.448 (7.340-7.440); ABG PO2 100.6 mmHg (75.0-100.0); ABG SITE RIGHT RADIAL; ABG TOTAL HEMOGLOBIN 12.9 G/dL (12.0-16.0); AaDO2 97.9 mmHg; COHb 0.1 % (0.0-3.9); MetHb 0.2 % (0.0-1.5); O2Hb 97.3 % (94.0-97.0); VT, ABG 400 mL
[2023-07-11 05:37] LABS: CALCIUM 9.8 mg/dL (8.5-10.1); CREATININE 0.6 mg/dL (0.6-1.3); MAGNESIUM 2.4 mg/dL (1.8-2.4); PHOSPHOROUS 3.5 mg/dL (2.5-4.9); POTASSIUM 4.3 mmol/L (3.5-5.1)
[2023-07-11] MEDS ORDERED: CEFAZOLIN 1 G VIAL ONE (08:57)
[2023-07-11 09:08] LABS: *BILIRUBIN,URIN NEGATIVE (NEGATIVE); *BLOOD, URINE 2+ (NEGATIVE); *CLARITY,URINE CLEAR (CLEAR); *COLOR,URINE DARK YELLOW (YELLOW); *KETONES,URINE NEGATIVE (NEGATIVE); *PROTEIN,URINE TRACE (NEGATIVE); LEUKOCYTE ESTERASE ,URINE 1+ (NEGATIVE); NITRITE, URINE POSITIVE (NEGATIVE); UGLUCOSE NEGATIVE (NEGATIVE)
[2023-07-11 09:31] LABS: BACTERIA,URINE MODERATE /HPF (NONE SEEN); CALCIUM OXALATE CRYSTALS,UR MODERATE /HPF (NONE SEEN); SQUAMOUS EPITHELIAL CELL,UR FEW /HPF (NONE SEEN); WBC,URINE 20-50 /HPF (0-3)
[2023-07-12] VITALS (35 sets, daily range): BP systolic 88–172; BP diastolic 54–143; TEMP 97.2–98.4; O2SAT 97–100
[2023-07-12 05:13] LABS: BASOPHILS % (AUTO) 0.3 % (0.0-2.0); HEMATOCRIT 36.7 % (31.2-41.9); HEMOGLOBIN 12.8 g/dL (10.9-14.3); LYMPHOCYTES # (AUTO) 1.4 K/uL (0.8-4.8); LYMPHOCYTES % (AUTO) 12.8 % (20.5-51.5); MEAN CORPUSCULAR HEMOGLOBIN 33.7 uug (24.7-32.8); MEAN CORPUSCULAR HGB CONC 35 g/dL (32.3-35.6); MEAN CORPUSCULAR VOLUME 96.7 fL (75.5-95.3); MONOCYTES # (AUTO) 0.8 K/uL (0.1-1.30); MONOCYTES % (AUTO) 7.4 % (0.0-11.0); NEUTROPHILS # (AUTO) 8.6 K/uL (1.8-8.9); NEUTROPHILS % (AUTO) 79.5 % (38.5-71.5); PLATELET COUNT (AUTO) 221 K/uL (179-408); RED CELL DISTRIBUTION WIDTH 13.8 % (12.3-17.7); WHITE BLOOD COUNT (AUTO) 10.9 K/uL (3.8-11.8)
[2023-07-12 05:28] LABS: DIFFERENTIAL COMMENT 1
[2023-07-12 05:37] LABS: CALCIUM 9.9 mg/dL (8.5-10.1); CARBON DIOXIDE 26 mmol/L (21-32); CHLORIDE 112 mmol/L (98-107); CREATININE 0.6 mg/dL (0.6-1.3); GLUCOSE 131 mg/dL (74-106); MAGNESIUM 2.3 mg/dL (1.8-2.4); PHOSPHOROUS 2.4 mg/dL (2.5-4.9); POTASSIUM 3.8 mmol/L (3.5-5.1); SODIUM SERUM 149 mmol/L (136-145); UREA NITROGEN, BLOOD 55 mg/dL (7-18)
[2023-07-12] MEDS: MIDODRINE HCL 5 MG TABLET PO SCH (09:55)
[2023-07-12] MEDS: NEUTRA PHOS PACKET GT ONE (16:19)
[2023-07-13] VITALS (38 sets, daily range): BP systolic 96–160; BP diastolic 48–109; TEMP 98–98.9; O2SAT 96–100
[2023-07-13 05:47] LABS: CALCIUM 9.9 mg/dL (8.5-10.1); CARBON DIOXIDE 27 mmol/L (21-32); CHLORIDE 113 mmol/L (98-107); CREATININE 0.5 mg/dL (0.6-1.3); GLUCOSE 174 mg/dL (74-106); MAGNESIUM 2.3 mg/dL (1.8-2.4); PHOSPHOROUS 3.1 mg/dL (2.5-4.9); POTASSIUM 3.8 mmol/L (3.5-5.1); SODIUM SERUM 150 mmol/L (136-145); UREA NITROGEN, BLOOD 47 mg/dL (7-18)
[2023-07-13 06:57] LABS: ABG BASE EXCESS -2.4 mmol/L (-2.0-2.0); ABG HCO3 21.1 mmol/L (22.0-26.0); ABG PCO2 31.8 mmHg (35.0-48.0); ABG PH 7.439 (7.340-7.440); ABG TOTAL HEMOGLOBIN 10.7 G/dL (12.0-16.0); AaDO2 97.7 mmHg; COHb 0.3 % (0.0-3.9); MetHb 0.1 % (0.0-1.5); O2Hb 97.1 % (94.0-97.0); VT, ABG 400 mL
[2023-07-13 08:05] LABS: BASOPHILS % (AUTO) 0.1 % (0.0-2.0); EOSINOPHILS % (AUTO) 0.1 % (0.0-7.0); HEMATOCRIT 35.8 % (31.2-41.9); HEMOGLOBIN 12.2 g/dL (10.9-14.3); LYMPHOCYTES # (AUTO) 1.1 K/uL (0.8-4.8); LYMPHOCYTES % (AUTO) 10.4 % (20.5-51.5); MEAN CORPUSCULAR HEMOGLOBIN 33.3 uug (24.7-32.8); MEAN CORPUSCULAR HGB CONC 34 g/dL (32.3-35.6); MEAN CORPUSCULAR VOLUME 97.6 fL (75.5-95.3); MONOCYTES # (AUTO) 0.8 K/uL (0.1-1.30); NEUTROPHILS # (AUTO) 8.9 K/uL (1.8-8.9); NEUTROPHILS % (AUTO) 82.4 % (38.5-71.5); PLATELET COUNT (AUTO) 243 K/uL (179-408); RED BLOOD CELL COUNT(AUTO) 3.66 MIL/uL (3.63-4.92); WHITE BLOOD COUNT (AUTO) 10.8 K/uL (3.8-11.8)
[2023-07-13 08:17] LABS: DIFFERENTIAL COMMENT 1
[2023-07-14] VITALS (11 sets, daily range): BP systolic 87–171; BP diastolic 50–79; TEMP 98.4–98.9; O2SAT 98–100
[2023-07-14 05:21] LABS: BASOPHILS % (AUTO) 0.4 % (0.0-2.0); EOSINOPHILS % (AUTO) 0.2 % (0.0-7.0); HEMATOCRIT 34.8 % (31.2-41.9); HEMOGLOBIN 11.8 g/dL (10.9-14.3); LYMPHOCYTES # (AUTO) 1.5 K/uL (0.8-4.8); LYMPHOCYTES % (AUTO) 14.1 % (20.5-51.5); MEAN CORPUSCULAR HEMOGLOBIN 32.8 uug (24.7-32.8); MEAN CORPUSCULAR HGB CONC 34 g/dL (32.3-35.6); MEAN CORPUSCULAR VOLUME 96.7 fL (75.5-95.3); MONOCYTES # (AUTO) 0.7 K/uL (0.1-1.30); NEUTROPHILS # (AUTO) 8.3 K/uL (1.8-8.9); NEUTROPHILS % (AUTO) 78.3 % (38.5-71.5); PLATELET COUNT (AUTO) 256 K/uL (179-408); RED CELL DISTRIBUTION WIDTH 14.2 % (12.3-17.7); WHITE BLOOD COUNT (AUTO) 10.7 K/uL (3.8-11.8)
[2023-07-14 05:39] LABS: CALCIUM 10.3 mg/dL (8.5-10.1); CARBON DIOXIDE 32 mmol/L (21-32); CHLORIDE 109 mmol/L (98-107); CREATININE 0.5 mg/dL (0.6-1.3); GLUCOSE 106 mg/dL (74-106); MAGNESIUM 2.2 mg/dL (1.8-2.4); PHOSPHOROUS 2.4 mg/dL (2.5-4.9); POTASSIUM 4.1 mmol/L (3.5-5.1); SODIUM SERUM 145 mmol/L (136-145); UREA NITROGEN, BLOOD 33 mg/dL (7-18)
[2023-07-14 05:48] LABS: DIFFERENTIAL COMMENT 1
[2023-07-14 08:17] LABS: ALBUMIN 2.7 g/dL (3.4-5.0); BILIRUBIN,DIRECT 0.2 mg/dL (0.0-0.2); BILIRUBIN,TOTAL 0.7 mg/dL (0.2-1.0)
[2023-07-14] MEDS: NEUTRA PHOS PACKET PO ONE (09:30)
[2023-07-14] MEDS: JEVITY 1.2 1000 ML LIQUID GT PRN (13:22)
[2023-07-15] MEDS ORDERED: PANT40SU2 GT (18:26)
[2023-07-15] MEDS ORDERED: MENT113O TOP ×2 (18:26)
[2023-07-15] MEDS ORDERED: LACT-209 GT (18:26)
[2023-07-15] MEDS ORDERED: PROT30LI GT (18:26)
[2023-07-15] MEDS ORDERED: IPRA0.2S6 NEB (18:26)
[2023-07-15] MEDS ORDERED: ALBU1.25 NEB (18:26)
[2023-07-15 19:00] VITALS: BP 141/65; O2SAT 99
[2023-07-15 20:00] VITALS: BP 141/70; TEMP 98.8; O2SAT 100
[2023-07-15 21:00] VITALS: BP 116/79; O2SAT 100
== END 2023-07-15 21:25 | DRG 4 ==
LOC: ER 17:57 → CCU 21:20
PROVIDERS: ADMIT Internal Medicine; ATTEND Internal Medicine
PROC: 5A1955Z Respiratory Ventilation, Greater than 96 Consecutive Hours (ICD-10-PCS; principal; 2023-06-20)
PROC: 0BH17EZ Insertion of Endotracheal Airway into Trachea, Via Natural or Artificial Opening (ICD-10-PCS; 2023-06-20)
PROC: 05HC33Z Insertion of Infusion Device into Left Basilic Vein, Percutaneous Approach (ICD-10-PCS; 2023-06-28)
PROC: 0B110F4 Bypass Trachea to Cutaneous with Tracheostomy Device, Open Approach (ICD-10-PCS; 2023-07-11)
DX: A41.52 Sepsis due to Pseudomonas (principal); L89.153 Pressure ulcer of sacral region, stage 3; B37.1 Pulmonary candidiasis; J96.01 Acute respiratory failure with hypoxia; J69.0 Pneumonitis due to inhalation of food and vomit; G92.8 Other toxic encephalopathy; J18.9 Pneumonia, unspecified organism; D68.59 Other primary thrombophilia; Z16.12 Extended spectrum beta lactamase (ESBL) resistance; Z16.13 Resistance to carbapenem; N39.0 Urinary tract infection, site not specified; J98.11 Atelectasis; M48.56XA Collapsed vertebra, not elsewhere classified, lumbar region, initial encounter for fracture; J44.0 Chronic obstructive pulmonary disease with (acute) lower respiratory infection; J90 Pleural effusion, not elsewhere classified; E87.0 Hyperosmolality and hypernatremia; E87.1 Hypo-osmolality and hyponatremia; B96.20 Unspecified Escherichia coli [E. coli] as the cause of diseases classified elsewhere; I48.0 Paroxysmal atrial fibrillation; N20.0 Calculus of kidney; N21.0 Calculus in bladder; E78.5 Hyperlipidemia, unspecified; G20.A1 Parkinson's disease without dyskinesia, without mention of fluctuations; F02.80 Dementia in other diseases classified elsewhere, unspecified severity, without behavioral disturbance, psychotic disturbance, mood disturbance, and anxiety; K56.41 Fecal impaction; R13.10 Dysphagia, unspecified; G31.83 Neurocognitive disorder with Lewy bodies; I70.0 Atherosclerosis of aorta; I35.8 Other nonrheumatic aortic valve disorders; G62.9 Polyneuropathy, unspecified; R00.1 Bradycardia, unspecified; Z88.3 Allergy status to other anti-infective agents; Z88.2 Allergy status to sulfonamides; Z87.891 Personal history of nicotine dependence; Z86.16 Personal history of COVID-19; Z79.899 Other long term (current) drug therapy; Z88.1 Allergy status to other antibiotic agents; Z93.1 Gastrostomy status; R91.1 Solitary pulmonary nodule; R79.89 Other specified abnormal findings of blood chemistry; M19.90 Unspecified osteoarthritis, unspecified site; I10 Essential (primary) hypertension
CPT/HCPCS: 36415; 36600; 71045; 71275; 82803; 83605; 83735; 84100; 84443; 84478; 84484; 85025; 85610; 85730; 87040; 93005; 93307; 94002; 94003; 94640; 94664; 94760; 99082-TC; A4606; A4649; A4663; G0378; J0330; J0690; J1644; J2185; J2250; J2270; J2543; J2920; J2930; J3370; J3490; J3590; J7040; J7050; J7614; Q9967